=== PATIENT | female | born 1955 | race Caucasian/White ===

== ENCOUNTER 2022-06-16 09:28 | Emergency (ER) | payer OTHER ==
[~2022-06-16] VITALS: Ht 157.5 cm; Wt 62.0 kg
[2022-06-16] MEDS ORDERED: ALBUTEROL SULF 2.5 MG/0.5ML(0.5%) NEB SOLN NEB ONE (12:45)
[2022-06-16] MEDS ORDERED: IPRATROPIUM BROM 0.5 MG/2.5ML INH SOL NEB ONE (12:45)
[2022-06-16] MEDS ORDERED: CEPH-510 PO (13:39)
[2022-06-16] MEDS ORDERED: ALBUTEROL SULF HFA 90MCG INH 200DOSE IN SCH (14:00)
[2022-06-16 14:25] VITALS: BP 126/74
== END 2022-06-16 14:36 | disposition home or self-care (01) ==
LOC: ER 09:28
DX: J18.9 Pneumonia, unspecified organism (principal); J98.01 Acute bronchospasm; F17.210 Nicotine dependence, cigarettes, uncomplicated
CPT/HCPCS: 71046; 93005; 94640; 99283; J7644